=== PATIENT | male | born 1980 | race Caucasian/White ===

== ENCOUNTER 2024-06-20 12:13 | Inpatient (IN) | payer OTHER ==
[2024-06-20 13:27] VITALS: BMI 26.7
[2024-06-20] MEDS ORDERED: POLYETHYLENE GLYCOL (HEALTHYLAX) 3350 17 GM PACKET PO PRN (13:53)
[2024-06-20] MEDS ORDERED: DICYCLOMINE HCL 10 MG CAPSULE PO PRN (13:53)
[2024-06-20] MEDS ORDERED: ACETAMINOPHEN 325 MG TABLET (FP) PO PRN (13:53)
[2024-06-20] MEDS ORDERED: METHOCARBAMOL 500 MG TABLET PO PRN (13:53)
[2024-06-20] MEDS ORDERED: MAG HYDROX/AL HYDROX/SIMETH 30 ML UNIT-DOSE CUP PO PRN (13:53)
[2024-06-20] MEDS ORDERED: MAGNESIUM HYDROX 2400MG/30ML ORAL SUSPENSION 30 ML CUP PO PRN (13:53)
[2024-06-20] MEDS ORDERED: guaiFENesin 600 MG TABLET.ER (FP) PO PRN (13:53)
[2024-06-20] MEDS ORDERED: BENZOCAINE/MENTHOL (CHLORASEPTIC ) LOZENGE MM PRN (13:53)
[2024-06-20] MEDS ORDERED: IBUPROFEN 400 MG TABLET (FP) PO PRN (13:53)
[2024-06-20] MEDS ORDERED: BISMUTH SUBSALICYLATE 524 MG/30 ML PO PRN (13:53)
[2024-06-20] MEDS ORDERED: BENZONATATE 200 MG CAPSULE PO PRN (13:53)
[2024-06-20] MEDS ORDERED: ONDANSETRON *ODT* 4 MG TABLET SL PRN (13:53)
[2024-06-20] MEDS ORDERED: NALOXONE HCL 0.4 MG/ML VIAL IM PRN (13:53)
[2024-06-20] MEDS ORDERED: NALOXONE (NARCAN) HCL 4 MG/0.1 ML SPRAY NS PRN (13:53)
[2024-06-20] MEDS ORDERED: LOPERAMIDE HCL 2 MG CAPSULE PO PRN (13:53)
[2024-06-20] MEDS ORDERED: GABAPENTIN 100 MG CAPSULE ONE (14:31)
[2024-06-20] MEDS: chlordiazePOXIDE HCL 25 MG CAPSULE PO ONE (14:31)
[2024-06-20] MEDS ORDERED: chlordiazePOXIDE HCL 25 MG CAPSULE ONE (14:31)
[2024-06-20] MEDS: GABAPENTIN 300 MG CAPSULE PO SCH (14:33)
[2024-06-20 15:08] VITALS: RESP 18
[2024-06-20] MEDS: chlordiazePOXIDE HCL 25 MG CAPSULE PO SCH (17:14)
[2024-06-20] MEDS: NICOTINE POLACRILEX 4 MG GUM BUC PRN (17:33)
[2024-06-20] MEDS: IBUPROFEN 600 MG TABLET (FP) PO PRN (19:11)
[2024-06-20] MEDS: THIAMINE 100 MG TABLET PO SCH (22:20)
[2024-06-20] MEDS: MELATONIN 5 MG TABLETS PO SCH (22:20)
[2024-06-21] MEDS: chlordiazePOXIDE HCL 25 MG CAPSULE PO PRN (01:25)
[2024-06-21 06:17] VITALS: PULSE 89
[2024-06-21 09:05] VITALS: BP 131/80; TEMP 97.5
[2024-06-21 09:15] LABS: HEMATOCRIT 41.7 % (35.4-49); HEMOGLOBIN 14.2 GM/dL (11.7-16.9); MCH 31.2 pg (25.7-33.7); MEAN PLT VOLUME 8.1 fl (7.5-11.1); PLATELET COUNT 120 10^3/uL (134-434); RBC 4.54 M/mm3 (4.00-5.60); RDW 14.1 % (11.9-15.9); WHITE BLOOD COUNT 3.7 K/mm3 (4.0-10.0)
[2024-06-21 09:16] LABS: CHLORIDE 104 mmol/L (98-107); POTASSIUM 3.6 mmol/L (3.5-5.1); SODIUM 139 mmol/L (136-145)
[2024-06-21 09:22] LABS: ALBUMIN 3.6 g/dl (3.4-5.0); ANION GAP 8 mmol/L (4-13); BLOOD UREA NITROGEN 12.1 mg/dL (7-18); CO2 27 mmol/L (21-32); GLUCOSE,RANDOM 114 mg/dL (74-106)
[2024-06-21 09:24] LABS: BILIRUBIN,TOTAL 0.8 mg/dL (0.2-1); SGOT/AST 65 U/L (15-37); SGPT/ALT 47 U/L (13-61)
[2024-06-21 09:25] LABS: CREATININE 0.8 mg/dL (0.55-1.3)
[2024-06-21 09:26] LABS: ALK PHOS 99 U/L (45-117)
[2024-06-21] MEDS ORDERED: hydrOXYzine PAMOATE 25 MG CAPSULE (FP) PO PRN (09:59)
[2024-06-21] MEDS: ALBUTEROL SO4 HFA INHALER IH PRN (10:06)
[2024-06-21] MEDS: PRENATAL VITAMINS W/ FOLIC ACID TABLET (FP) PO SCH (10:06)
[2024-06-21] MEDS ORDERED: MELATONIN 5 MG TABLETS PO SCH (22:00)
[2024-06-22] MEDS ORDERED: chlordiazePOXIDE HCL 25 MG CAPSULE PO SCH (05:00)
[2024-06-23] MEDS ORDERED: chlordiazePOXIDE HCL 10 MG CAPSULE PO PRN
[2024-06-23] MEDS ORDERED: chlordiazePOXIDE HCL 10 MG CAPSULE PO SCH (05:00)
[2024-06-24] MEDS ORDERED: chlordiazePOXIDE HCL 10 MG CAPSULE PO SCH (05:00)
[2024-06-25] MEDS ORDERED: chlordiazePOXIDE HCL 10 MG CAPSULE PO ONE (05:00)
== END 2024-06-21 12:12 | disposition left against medical advice (07) | DRG 770 ==
LOC: YASAS 12:13 → Y3N 14:08
PROVIDERS: ADMIT Surgery; ATTEND Surgery
PROC: HZ2ZZZZ Detoxification Services for Substance Abuse Treatment (ICD-10-PCS; principal; 2024-06-20)
DX: F10.230 Alcohol dependence with withdrawal, uncomplicated (principal); F17.210 Nicotine dependence, cigarettes, uncomplicated; F10.282 Alcohol dependence with alcohol-induced sleep disorder; F41.0 Panic disorder [episodic paroxysmal anxiety]; G62.9 Polyneuropathy, unspecified; I48.91 Unspecified atrial fibrillation; J45.909 Unspecified asthma, uncomplicated; Z86.69 Personal history of other diseases of the nervous system and sense organs
CPT/HCPCS: 36415; 80053; 80305; 80307; 85027; 86780; 93005; 93010

== ENCOUNTER 2025-05-30 12:16 | Inpatient (IN) | payer OTHER ==
[2025-05-30 12:42] VITALS: BMI 25.9
[2025-05-30] MEDS ORDERED: BISMUTH SUBSALICYLATE 524 MG/30 ML PO PRN (12:52)
[2025-05-30] MEDS ORDERED: POLYETHYLENE GLYCOL (HEALTHYLAX) 3350 17 GM PACKET PO PRN (12:52)
[2025-05-30] MEDS ORDERED: guaiFENesin 600 MG TABLET.ER (FP) PO PRN (12:52)
[2025-05-30] MEDS ORDERED: NALOXONE (NARCAN) HCL 4 MG/0.1 ML SPRAY NS PRN (12:52)
[2025-05-30] MEDS ORDERED: BENZOCAINE/MENTHOL (CHLORASEPTIC ) LOZENGE MM PRN (12:52)
[2025-05-30] MEDS ORDERED: LOPERAMIDE HCL 2 MG CAPSULE PO PRN (12:52)
[2025-05-30] MEDS ORDERED: DICYCLOMINE HCL 10 MG CAPSULE PO PRN (12:52)
[2025-05-30] MEDS ORDERED: NICOTINE POLACRILEX 2 MG LOZENGE BC PRN (12:52)
[2025-05-30] MEDS ORDERED: MAGNESIUM HYDROX 2400MG/30ML ORAL SUSPENSION 30 ML CUP PO PRN (12:52)
[2025-05-30] MEDS ORDERED: MAG HYDROX/AL HYDROX/SIMETH 30 ML UNIT-DOSE CUP PO PRN (12:52)
[2025-05-30] MEDS ORDERED: BENZONATATE 200 MG CAPSULE PO PRN (12:52)
[2025-05-30] MEDS ORDERED: IBUPROFEN 400 MG TABLET (FP) PO PRN (12:52)
[2025-05-30] MEDS ORDERED: ONDANSETRON *ODT* 4 MG TABLET ONE (14:12)
[2025-05-30] MEDS ORDERED: levETIRAcetam 500 MG TABLET (FP) PO ONE (14:12)
[2025-05-30] MEDS: ONDANSETRON *ODT* 4 MG TABLET SL PRN (14:15)
[2025-05-30] MEDS: levETIRAcetam 500 MG TABLET (FP) PO SCH (14:15)
[2025-05-30] MEDS ORDERED: ALBUTEROL SO4 HFA INHALER IH PRN (14:46)
[2025-05-30] MEDS: GABAPENTIN 400 MG CAPSULE PO SCH (22:21)
[2025-05-30] MEDS: THIAMINE 100 MG TABLET PO SCH (22:21)
[2025-05-30] MEDS: MELATONIN 5 MG TABLETS PO SCH (22:21)
[2025-05-31 09:49] LABS: MCHC 33.7 g/dl (32.3-36.5); MEAN CELL VOLUME 91.7 fl (79.0-92.2); MEAN PLT VOLUME 10.6 fl (9.4-12.4); RDW 11.1 % (12.1-15.9)
[2025-05-31 10:29] LABS: GLUCOSE,RANDOM 97 mg/dL (74-106); TOT PROT 6.6 g/dl (6.4-8.2)
[2025-05-31 10:30] LABS: CO2 24 mmol/L (21-32)
[2025-05-31 10:32] LABS: ALK PHOS 88 U/L (40-150)
[2025-05-31 10:34] LABS: SGOT/AST 83 U/L (5-34); SGPT/ALT 33 U/L (0-55)
[2025-05-31 10:35] LABS: CREATININE 0.78 mg/dL (0.55-1.3)
[2025-05-31] MEDS: PRENATAL VITAMINS W/ FOLIC ACID TABLET (FP) PO SCH (11:01)
[2025-05-31] MEDS: hydrOXYzine PAMOATE 25 MG CAPSULE (FP) PO PRN (13:24)
[2025-05-31] MEDS: METHOCARBAMOL 500 MG TABLET PO PRN (17:20)
[2025-05-31] MEDS: IBUPROFEN 600 MG TABLET (FP) PO PRN (23:31)
[2025-06-01] MEDS: NICOTINE POLACRILEX 2 MG GUM BUC PRN (08:57)
[2025-06-01] MEDS: ACETAMINOPHEN 325 MG TABLET (FP) PO PRN (17:32)
[2025-06-01] MEDS: SUVOREXANT 10 MG TABLET PO PRN (22:05)
[2025-06-02 12:28] VITALS: BP 133/89; PULSE 84; RESP 16; TEMP 97.7
== END 2025-06-02 12:51 | disposition home or self-care (01) | DRG 775 ==
LOC: YASAS 12:16 → Y3N 14:12
PROVIDERS: ADMIT Neuromusculoskeletal Medicine & OMM; ATTEND Allergy & Immunology
PROC: HZ2ZZZZ Detoxification Services for Substance Abuse Treatment (ICD-10-PCS; principal; 2025-05-30)
DX: F10.230 Alcohol dependence with withdrawal, uncomplicated (principal); F17.210 Nicotine dependence, cigarettes, uncomplicated; F41.0 Panic disorder [episodic paroxysmal anxiety]; G62.9 Polyneuropathy, unspecified; J45.909 Unspecified asthma, uncomplicated; Z86.79 Personal history of other diseases of the circulatory system
CPT/HCPCS: 36415; 80053; 80307; 85027; 86780; 93005; 93010; Q0162